=== PATIENT | male | born 1960 | race Caucasian/White ===

== ENCOUNTER 2020-07-25 12:06 | Emergency (ER) | payer SELFPAY ==
[2020-07-25 12:32] LABS: #Basophils 0.1 thou/uL (0.0-0.2); #Eosinphils 0.2 thou/uL (0.0-0.7); #Monocytes 0.6 thou/uL (0.11-0.59); #Neutrophils 4.4 thou/uL (1.40-6.50); %Basophils 1.3 % (0.0-1.0); %Eosinophils 2.6 % (0.0-10.0); %Lymphocytes 27.5 % (21.0-51.0); %Monocytes 8.3 % (0.0-10.0); %Neutrophils 60.4 % (42.0-75.0); Hemoglobin 18.4 g/dL (14.0-18.0); Mean Corpuscular HGB CONC 32.5 g/dL (32.0-36.0); Mean Corpuscular Hemoglobin 32.4 pg (27.0-31.0); Mean Corpuscular Volume 99.7 fL (78.0-98.0); Mean Platelet Volume 7.2 fL (7.4-10.4); Platelet Count 200 thou/uL (130-400); RBC Distribution Width 11.5 % (11.5-14.5); Red Blood Cell (RBC) Count 5.68 mill/uL (4.70-6.10); White Blood Cell (WBC) Count 7.2 thou/uL (4.8-10.8)
[2020-07-25] MEDS ORDERED: Aspirin Chewable 81 MG TAB ONE (12:41)
[2020-07-25 12:42] LABS: INR-International Normal Ratio 0.9; PTT 28.8 sec (22.9-36.1); Prothrombin Time 12.2 sec (12.0-14.7)
[2020-07-25 12:48] LABS: ALT (SGPT) 28 U/L (8-55); AST (SGOT) 24 U/L (5-34); Alkaline Phosphatase 75 U/L (40-110); Anion Gap 15 mmol/L (10-20); BUN (Urea Nitrogen) 13 mg/dL (8.4-25.7); Bilirubin, Total 0.7 mg/dL (0.2-1.2); Calc. Creatinine Clearance 0 mL/min (70-130); Calcium 9.5 mg/dL (7.8-10.44); Carbon Dioxide 26 mmol/L (23-31); Chloride 101 mmol/L (98-107); Estimated GFR-MDRD 59; Globulin 3.4 g/dL (2.4-3.5); Glucose 133 mg/dL (80-115); Protein, Total 7.4 g/dL (5.8-8.1); Sodium 138 mmol/L (136-145)
--- NOTE | 2020-07-25 13:43 | CT ---
CT OF THE BRAIN WITHOUT CONTRAST: 07/25/[address] was done with no prior studies available for comparison. The patient presents with p redominantly left upper extremity weakness and a small amount of left lower extremity weakness. Appar ently this has been going on for about 8 days. There is a small focal infarct in the right internal capsule. The age is indeterminate but the locati on does map to an area that would be expected to cause mainly upper extremity problems on the left si de. There is no bleeding. No other infarcts were seen. There is some mild chronic ischemic changes in the deep white matter. The ventricles are normal in size. There is no shift. No mass, edema, or other acute changes were see n. The skull is normal in appearance. Substantial chronic mucosal thickening is seen in the left maxilla ry sinus. IMPRESSION: 1. 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 2. Chronic left maxillary sinusitis. Preliminary findings discussed with Dr. Sterling at 1235 on 07/25/20. POS: HOME
== END 2020-07-25 13:05 | disposition short-term general hospital (02) ==
LOC: BURERS 12:06
DX: I67.82 Cerebral ischemia (principal); G81.90 Hemiplegia, unspecified affecting unspecified side; F17.220 Nicotine dependence, chewing tobacco, uncomplicated
CPT/HCPCS: 36415; 70450; 80053; 84484; 85025; 85610; 85730; 93005; 94760